=== PATIENT | male | born 1985 | race Hispanic/Latino ===

== ENCOUNTER 2020-10-09 02:29 | Emergency (ER) | payer SELFPAY ==
--- NOTE | ~2020-10-09 | XR_ITS ---
EXAMINATION: XR chest 2V DATE: 10/09/2020 02:55 INDICATION: Chest pain. Shortness of breath. TECHNIQUE: Frontal and lateral views of the chest were obtained. COMPARISON: Chest 2 views 02/25/2014 FINDINGS: The chest demonstrates clear lungs without pneumonia, pleural effusion, or pneumothorax. Th e heart size is normal. IMPRESSION: 1. No acute cardiopulmonary disease. Reviewed, dictated and finalized at location A.
[2020-10-09 02:33] VITALS: BP 146/94; PULSE 92; RESP 20; TEMP 36.5; O2SAT 100
--- NOTE | 2020-10-09 02:33 | ECG_ITS ---
Measurements Intervals [place] Rate: 90 P: 25 [place]: 131 QRS: 12 QRSD: 108 T: 8 QT: 332 QTc: 407 Interpretive Statements SINUS RHYTHM ST ELEVATION IN DIFFUSE LEADS- PROBABLY EARLY REPOLARIZATION ABNORMALTY BASELINE ARTIFACT- II, V3-V5 BORDERLINE ECG Electronically Signed On 10-09-2020 6:56:41 CDT by Wilder Mahan D.O.
[2020-10-09] MEDS: ASPIRIN 81 MG CHEWABLE TABLET 324 MG PO (02:41)
[2020-10-09 02:45] VITALS: BP 141/84; PULSE 90; RESP 16; O2SAT 96
[2020-10-09] MEDS: BELLADONNA ALK/PHENOB ELIX 10 ML, MAG HYDROX/ALUMINUM HYD/SIMETH 30 ML, LIDOCAINE HCL 2... PO (02:56)
[2020-10-09 03:19] LABS: Basophils Absolute Auto 0.1 K/mm3 (0.0-0.1); Basophils Percent Auto 0.4 % (0.2-1.2); Eosinophils Absolute Auto 0.1 K/mm3 (0-0.3); Eosinophils Percent Auto 0.7 % (0-4.4); Hematocrit 47.4 % (42.0-52.0); Hemoglobin 16.3 g/dL (14.0-18.0); Immature Granulocyte Absolute 0.04 K/mm3 (0.00-0.031); Immature Granulocyte Percent A 0.3 % (0-0.5); Lymphocytes Absolute Auto 4.14 K/mm3 (0.9-3.2); Mean Corpuscular HGB Conc 34.4 g/dl (32-36); Mean Corpuscular Hemoglobin 30.5 pg (26-34); Mean Corpuscular Volume 88.8 fl (80-100); Mean Platelet Volume 12.7 fl (7.4-10.4); Monocytes Absolute Auto 1.1 K/mm3 (0.1-0.6); Neutrophils Absolute Auto 6.5 K/mm3 (1.3-6.7); Neutrophils Percent Auto 54.6 % (45.5-73.1); Platelet Count Result 178 k/mm3 (150-375); Red Blood Count 5.34 M/mm3 (4.6-6.20); Red Cell Distribution Width 12.5 % (11.5-14.5); White Blood Count 11.8 K/mm3 (4.5-10.0)
[2020-10-09 03:35] LABS: INR 0.9; Prothrombin Time 12.8 Seconds (11.1-14.7)
[2020-10-09 03:37] LABS: Partial Thromboplastin Time 26.7 SECONDS (22.3-36.8)
[2020-10-09 03:39] LABS: Anion Gap 12 mmol/L (8-16); Blood Urea Nitrogen 21 mg/dL (9-20); Calcium 9.9 mg/dL (8.4-10.2); Carbon Dioxide 26 mmol/L (22-30); Chloride 101 mmol/L (98-107); Estimated CRCL calculation 125 ml/min; Estimated Glomerular Filt Rate > 60; Glucose 108 mg/dL (75-110); Potassium 3.8 mmol/L (3.4-5.0); Sodium 139 mmol/L (137-145)
[2020-10-09 03:51] LABS: Troponin I < 0.012 ng/mL (0.000-0.034)
[2020-10-09 03:59] VITALS: BP 135/81; PULSE 84; RESP 19; O2SAT 100
[2020-10-09 04:00] VITALS: BP 132/80; PULSE 93; RESP 15; O2SAT 97
--- NOTE | 2020-10-09 04:05 | ED.CHESTPAIN ---
HPI - Chest Pain General Chief Complaint: Chest Pain Stated Complaint: chest pain Time Seen by Provider: 10/09/20 02:34 History of Present Illness HPI narrative: Patient is a 35-year-old male who presents ER with chest pain. Begins in his epigastrium and goes up into the back of his throat. Burning in nature. No additional radiation. No exertional component. No shortness of breath. No previous history of coronary disease and no family history of coronary disease. Patient does have history of acid reflux and this feels similar. He also reports that he has been drinking some beers which may have worsened that. Pain ongoing for the last 24 hours. Has tried no medications to help with his discomfort. Related Data Allergies Allergy/AdvReac Type Severity Reaction Status Date / Time No Known Allergies Allergy Unverified 02/25/14 08:55 Review of Systems Review of Systems: All systems reviewed & are unremarkable except as noted in HPI and below Constitutional: Constitutional: Denies chills and Denies fever(s) Cardiovascular: Cardiovascular: Reports chest pain, Denies rapid heart rate and Denies radiating jaw, neck or arm pain Gastrointestinal: Gastrointestinal: Denies abdominal pain, Reports heartburn, Denies nausea and Denies vomiting PMFSH Past Medical History Medical History (Updated 10/09/20 @ 04:08 by Dirk Yun MD) GERD (gastroesophageal reflux disease) Surgical History Surgical History (Updated 10/09/20 @ 04:06 by Dirk Yun MD) No pertinent past surgical history Social History Social History (Updated 10/09/20 @ 04:06 by Dirk Yun MD) Smoking status: Current every day smoker Alcohol intake: current Exam Narrative: Exam Narrative: GENERAL: Well-appearing, well-nourished, and in no acute distress. HEAD: Normocephalic, atraumatic. EYES: PERRL and EOMI. CHEST: Clear to auscultation. No respiratory distress. HEART: Regular rate and rhythm. Normal peripheral pulses. ABDOMEN: Soft, nontender, nondistended. EXTREMITIES: Normal range of motion. No edema. SKIN: Warm, dry, no rash. NEURO: Alert and oriented x3. PSYCH: Normal mood and affect. Course Course Emergency Course: And improved with GI cocktail. Unremarkable lab work. Troponin negative. EKG with early repolarization abnormality. Discharge home with reflux medication. Vital Signs Vital signs: Vital Signs Temperature 97.7 F 10/09/20 02:33 Pulse Rate 92 10/09/20 02:33 Respiratory Rate 20 10/09/20 02:33 Blood Pressure 146/94 H 10/09/20 02:33 Pulse Oximetry 100 10/09/20 02:33 Temperature 97.7 F 10/09/20 02:33 Pulse Rate 92 10/09/20 02:33 Respiratory Rate 20 10/09/20 02:33 Blood Pressure 146/94 H 10/09/20 02:33 Pulse Oximetry 100 10/09/20 02:33 MDM - Chest Pain Lab Data Result diagrams: 10/09/20 02:43 10/09/20 02:43 Labs: Lab Results 10/09/20 10/09/20 10/09/20 Range/Units 02:43 02:43 02:43 WBC 11.8 H (4.5-10.0) K/mm3 RBC 5.34 (4.6-6.20) M/mm3 Hgb 16.3 (14.0-18.0) g/dL Hct 47.4 (42.0-52.0) % MCV 88.8 (80-100) fl MCH 30.5 (26-34) pg MCHC 34.4 (32-36) g/dl RDW 12.5 (11.5-14.5) % Plt Count 178 (150-375) k/mm3 MPV 12.7 H (7.4-10.4) fl Immature Gran % (Auto) 0.3 (0-0.5) % Neut % (Auto) 54.6 (45.5-73.1) % Lymph % (Auto) 35.0 (18.3-44.2) % [place] % (Auto) 9.0 H (2.6-8.5) % Eos % (Auto) 0.7 (0-4.4) % Baso % (Auto) 0.4 (0.2-1.2) % Lymph # (Auto) 4.14 H (0.9-3.2) K/mm3 [place] # (Auto) 1.1 H (0.1-0.6) K/mm3 Eos # (Auto) 0.1 (0-0.3) K/mm3 Baso # (Auto) 0.1 (0.0-0.1) K/mm3 Abs Immat Gran (auto) 0.04 H (0.00-0.031) K/mm3 Absolute Neuts (auto) 6.5 (1.3-6.7) K/mm3 Absolute Nucleated RBC 0.0 (0.0-0.012) K/mm3 Nucleated RBC % 0.0 (0.0-0.2) % PT 12.8 (11.1-14.7) Seconds INR 0.9 APTT 26.7 (22.3-36.8) SECONDS Sodium
== END 2020-10-09 04:28 | disposition home or self-care (01) ==
PROVIDERS: Emergency Provider Emergency Medicine
DX: K21.9 Gastro-esophageal reflux disease without esophagitis (principal); F17.200 Nicotine dependence, unspecified, uncomplicated; R94.31 Abnormal electrocardiogram [ECG] [EKG]
CPT/HCPCS: 36415; 71046; 80048; 84484; 85025; 85610; 85730; 93005; 99284; A9270

== ENCOUNTER 2020-10-28 19:11 | Emergency (ER) | payer SELFPAY ==
[2020-10-28 19:20] VITALS: BP 157/92; PULSE 76; RESP 22; TEMP 37; O2SAT 95
--- NOTE | 2020-10-28 19:21 | ECG_ITS ---
Measurements Intervals [place] Rate: 75 P: 24 TN: 152 QRS: 7 QRSD: 112 T: 8 QT: 355 QTc: 399 Interpretive Statements SINUS RHYTHM WITH SINUS ARRHYTHMIA INTRAVENTRICULAR CONDUCTION DELAY DELAYED PRECORDIAL R/S TRANSITION ST ELEVATION CONSISTENT WITH INJURY, PERICARDITIS, OR EARLY REPOLARIZATION ABNORMAL ECG Electronically Signed On 10-30-2020 11:44:36 CDT by Wilder Mahan D.O.
[2020-10-28 20:16] VITALS: BP 125/67; PULSE 71; RESP 18; O2SAT 100
[2020-10-28] MEDS: SODIUM CHLORIDE 0.9% IV 1,000 ML 999 ML IV CONT (20:16)
[2020-10-28 20:26] LABS: Basophils Percent Auto 0.3 % (0.2-1.2); Eosinophils Absolute Auto 0.1 K/mm3 (0-0.3); Eosinophils Percent Auto 0.8 % (0-4.4); Hematocrit 44.5 % (42.0-52.0); Hemoglobin 15.2 g/dL (14.0-18.0); Immature Granulocyte Absolute 0.03 K/mm3 (0.00-0.031); Immature Granulocyte Percent A 0.3 % (0-0.5); Lymphocytes Absolute Auto 2.81 K/mm3 (0.9-3.2); Lymphocytes Percent Auto 30.9 % (18.3-44.2); Mean Corpuscular HGB Conc 34.2 g/dl (32-36); Mean Corpuscular Hemoglobin 30.3 pg (26-34); Mean Corpuscular Volume 88.6 fl (80-100); Monocytes Absolute Auto 0.7 K/mm3 (0.1-0.6); Monocytes Percent Auto 7.9 % (2.6-8.5); Neutrophils Absolute Auto 5.4 K/mm3 (1.3-6.7); Neutrophils Percent Auto 59.8 % (45.5-73.1); Platelet Count Result 167 k/mm3 (150-375); Red Blood Count 5.02 M/mm3 (4.6-6.20); Red Cell Distribution Width 12.6 % (11.5-14.5); White Blood Count 9.1 K/mm3 (4.5-10.0)
[2020-10-28 20:40] LABS: Alanine Aminotransferase 26 U/L (4-50); Albumin Level 4.8 g/dL (3.5-5.1); Alkaline Phosphatase 86 U/L (38-126); Anion Gap 11 mmol/L (8-16); Aspartate Amino Transferase 31 U/L (17-59); Bilirubin,Total 0.3 mg/dL (0.2-1.3); Blood Urea Nitrogen 16 mg/dL (9-20); Calcium 9.7 mg/dL (8.4-10.2); Carbon Dioxide 27 mmol/L (22-30); Chloride 101 mmol/L (98-107); Creatine Kinase 71 U/L (55-170); Estimated CRCL calculation 126 ml/min; Estimated Glomerular Filt Rate > 60; Glucose 100 mg/dL (75-110); Lipase 89 U/L (23-300); Potassium 3.6 mmol/L (3.4-5.0); Sodium 139 mmol/L (137-145)
[2020-10-28 20:49] LABS: Troponin I < 0.012 ng/mL (0.000-0.034)
[2020-10-28 21:38] VITALS: BP 127/64; PULSE 57; RESP 18; O2SAT 95
--- NOTE | 2020-10-28 21:38 | ED.GENADULT ---
HPI - General Adult General Chief complaint: Chest Pain Stated complaint: cp, fatigue Time Seen by Provider: 10/28/20 19:27 History of Present Illness HPI narrative: Patient is a 35-year-old male who presents ER with 2 different complaints. Main complaint is fatigue with muscle cramping. Ongoing over the last week. Will get cramps in his right shoulder and also on his thighs. 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 With the cramping today he felt extremely tired and sweaty and also developed some nausea. Denies alleviating factors. Patient also reports some persistent epigastric discomfort going up into his chest. Previously this improved with GI cocktail. He had been on famotidine without much relief. No exertional component. Denies family history of heart disease. Related Data Allergies Allergy/AdvReac Type Severity Reaction Status Date / Time No Known Allergies Allergy Unverified 02/25/14 08:55 Review of Systems Review of Systems: All systems reviewed & are unremarkable except as noted in HPI and below Constitutional: Constitutional: Denies chills, Reports fatigue and Denies fever(s) Comments: Sweats ENT: Denies nasal congestion and Denies sore throat Gastrointestinal: Gastrointestinal: Reports abdominal pain, Reports heartburn, Reports nausea and Denies vomiting Musculoskeletal: Musculoskeletal: Denies back pain, Denies arthralgias, Denies joint swelling and Reports muscle cramps Neurologic: Denies dizziness, Denies headache(s) and Denies weakness PMFSH Past Medical History Medical History (Updated 10/28/20 @ 21:44 by Dirk Yun MD) GERD (gastroesophageal reflux disease) Surgical History Surgical History (Updated 10/09/20 @ 04:06 by Dirk Yun MD) No pertinent past surgical history Social History Social History (Updated 10/09/20 @ 04:06 by Dirk Yun MD) Smoking status: Current every day smoker Alcohol intake: current Exam Narrative: Exam Narrative: GENERAL: Well-appearing, well-nourished, and in no acute distress. HEAD: Normocephalic, atraumatic. ENT: Mucous membranes moist. CHEST: Clear to auscultation. No respiratory distress. HEART: Regular rate and rhythm. Normal peripheral pulses. ABDOMEN: Soft, nontender, nondistended. EXTREMITIES: Normal range of motion. No edema. No tenderness of the extremities or palpable spasm. SKIN: Warm, dry, no rash. NEURO: Alert and oriented x3. Course Course Emergency Course: Unremarkable evaluation. Patient hydrated. Patient seems to have heat related illness and may also have persistent acid reflux. He reports he has not establish care with PCP and have encouraged him to do so. Vital Signs Vital signs: Vital Signs Temperature 98.6 F 10/28/20 19:20 Pulse Rate 76 10/28/20 19:20 Respiratory Rate 22 H 10/28/20 19:20 Blood Pressure 157/92 H 10/28/20 19:20 Pulse Oximetry 95 10/28/20 19:20 Temperature 98.6 F 10/28/20 19:20 Pulse Rate 71 10/28/20 20:16 Respiratory Rate 18 10/28/20 20:16 Blood Pressure 125/67 10/28/20 20:16 Pulse Oximetry 100 10/28/20 20:16 Medical Decision Making Vital Signs Vital Signs: Vital Signs Temperature 98.6 F 10/28/20 19:20 Pulse Rate 76 10/28/20 19:20 Respiratory Rate 22 H 10/28/20 19:20 Blood Pressure 157/92 H 10/28/20 19:20 Pulse Oximetry 95 10/28/20 19:20 Temperature 98.6 F 10/28/20 19:20 Pulse Rate 71 10/28/20 20:16 Respiratory Rate 18 10/28/20 20:16 Blood Pressure 125/67 10/28/20 20:16 Pulse Oximetry 100 10/28/20 20:16 Lab Data Result diagrams: 10/28/20 20:19 10/28/20 20:19 Labs: Lab Results 10/28/20 10/28/20 Range/Units 20:19 20:19 WBC 9.1 (4.5-10.0) K/mm3 RBC 5.02 (4.6-6.20) M/mm3 Hgb 15.2 (14.0-18.0) g/dL Hct 44.5 (42.0-52.0) % MCV 88.6 (80-100) fl MCH 30.3 (26-34) pg MCHC 34.2 (32-36) g/dl RDW 12.6 (11.5-14.5) % Plt Coun
[2020-10-28 22:36] VITALS: BP 122/66; PULSE 61; RESP 18; O2SAT 99
== END 2020-10-28 22:39 | disposition home or self-care (01) ==
PROVIDERS: Emergency Provider Emergency Medicine; PCP Registered Nurse
DX: T67.5XXA Heat exhaustion, unspecified, initial encounter (principal); K21.9 Gastro-esophageal reflux disease without esophagitis; F17.200 Nicotine dependence, unspecified, uncomplicated; R07.89 Other chest pain; X30.XXXA Exposure to excessive natural heat, initial encounter
CPT/HCPCS: 36415; 80053; 82550; 83690; 84484; 85025; 93005; 96360; 99284; J7030

== ENCOUNTER 2020-10-30 15:15 | Emergency (ER) | payer SELFPAY ==
--- NOTE | ~2020-10-30 | XR_ITS ---
EXAMINATION: XR chest 2V DATE: 10/30/2020 15:50 INDICATION: Midsternal chest pain TECHNIQUE: PA and lateral views of the chest are obtained. COMPARISON: 10/09/2020 FINDINGS: The lungs are free of acute opacities. There is no pleural effusion or pneumothorax. The ca rdiomediastinal silhouette is normal. The visualized bones and soft tissues are unremarkable. IMPRESSION: 1. No acute cardiopulmonary abnormality. Reviewed, dictated and finalized at location A.
[2020-10-30 15:16] VITALS: BP 129/81; PULSE 80; RESP 20; TEMP 36.6; O2SAT 96
--- NOTE | 2020-10-30 15:17 | ECG_ITS ---
Measurements Intervals [place] Rate: 67 P: 51 [place]: 166 QRS: 28 QRSD: 109 T: 18 QT: 366 QTc: 387 Interpretive Statements SINUS RHYTHM INCOMPLETE RIGHT BUNDLE BRANCH BLOCK DELAYED PRECORDIAL R/S TRANSITION ST ELEVATION IN DIFFUSE LEADS- PROBABLY EARLY REPOLARIZATION ABNORMALITY BORDERLINE ECG Electronically Signed On 10-30-2020 15:30:59 CDT by Wilder Mahan D.O.
[2020-10-30 16:00] LABS: Basophils Percent Auto 0.3 % (0.2-1.2); Eosinophils Absolute Auto 0.1 K/mm3 (0-0.3); Eosinophils Percent Auto 0.6 % (0-4.4); Hemoglobin 16.3 g/dL (14.0-18.0); Immature Granulocyte Absolute 0.04 K/mm3 (0.00-0.031); Immature Granulocyte Percent A 0.4 % (0-0.5); Lymphocytes Absolute Auto 2.62 K/mm3 (0.9-3.2); Lymphocytes Percent Auto 27.5 % (18.3-44.2); Mean Corpuscular Volume 88.4 fl (80-100); Mean Platelet Volume 12.3 fl (7.4-10.4); Monocytes Percent Auto 10.1 % (2.6-8.5); Neutrophils Absolute Auto 5.8 K/mm3 (1.3-6.7); Neutrophils Percent Auto 61.1 % (45.5-73.1); Platelet Count Result 200 k/mm3 (150-375); Red Blood Count 5.43 M/mm3 (4.6-6.20); Red Cell Distribution Width 12.5 % (11.5-14.5); White Blood Count 9.5 K/mm3 (4.5-10.0)
[2020-10-30 16:11] LABS: Anion Gap 11 mmol/L (8-16); Blood Urea Nitrogen 18 mg/dL (9-20); Calcium 9.7 mg/dL (8.4-10.2); Carbon Dioxide 25 mmol/L (22-30); Chloride 103 mmol/L (98-107); Estimated CRCL calculation 124 ml/min; Estimated Glomerular Filt Rate > 60; Glucose 113 mg/dL (75-110); Potassium 3.8 mmol/L (3.4-5.0); Sodium 139 mmol/L (137-145)
[2020-10-30 16:22] LABS: Troponin I < 0.012 ng/mL (0.000-0.034)
[2020-10-30 16:42] VITALS: BP 145/76; PULSE 75; RESP 14; O2SAT 99
--- NOTE | 2020-10-30 17:40 | ED.CHESTPAIN ---
HPI - Chest Pain General Chief Complaint: Chest Pain Stated Complaint: chest pain Time Seen by Provider: 10/30/20 17:00 Source: patient and family Mode of arrival: ambulatory Limitations: no limitations History of Present Illness HPI narrative: Patient is a 35-year-old male who presents complaining of epigastric pain x3 weeks. Patient was seen 10/09 and 10/28 with complaints that included chest/epigastric pain. He reports taking Protonix over the past 2 days without relief. He reports increasing pain this afternoon. He denies shortness of breath. Denies all other complaints at this time. Patient has not scheduled follow-up with PCP as of this time. MD complaint: other (Epigastric pain) Related Data Allergies Allergy/AdvReac Type Severity Reaction Status Date / Time No Known Allergies Allergy Verified 10/30/20 16:43 Review of Systems Review of Systems: Narrative: CONSTITUTIONAL: Denies fever, chills, or sweats. EYES: Denies visual changes, redness, or discharge. ENT: Denies rhinorrhea, congestion, sore throat, or otalgia. CARDIOVASCULAR: Reports epigastric pain, denies palpitations, or edema. RESPIRATORY: Denies cough or dyspnea. GASTROINTESTINAL: Denies abdominal pain, nausea, vomiting, or diarrhea. GENITOURINARY: Denies dysuria or hematuria. SKIN: Denies rash or itching. MUSCULOSKELETAL: Denies back pain, joint pain, or myalgia. NEUROLOGIC: Denies headache, numbness, dizziness, or weakness. PSYCHIATRIC: Denies anxiety or depression. PMFSH Past Medical History Medical History GERD (gastroesophageal reflux disease) Surgical History Surgical History No pertinent past surgical history Social History Social History Smoking status: Current every day smoker Alcohol intake: current Gender identity (if verbalized by the patient): Male Comments At the time of signature, I have reviewed and agree with nursing past medical, surgical, social, and family history unless otherwise noted. Please see nursing chart for further information. There is no relevant family history pertinent to the presenting complaint. Exam Narrative: Exam Narrative: GENERAL: Well-appearing, well-nourished, and in no acute distress. HEAD: Normocephalic, atraumatic. EYES: EOMI. No redness or drainage. Conjunctiva are normal. ENT: Mucous membranes pink and moist. Throat normal. Uvula midline. NECK: AROM. Supple. No lymphadenopathy. CHEST: No respiratory distress. Clear to auscultation. HEART: Regular rate and rhythm. No murmur appreciated. Normal peripheral pulses. GI: Soft, nontender without rebound, or guarding. No distention. Bowel sounds normal in all quadrants. MUSCULOSKELETAL: No bony tenderness. EXTREMITIES: Normal range of motion. No edema. SKIN: Warm, dry, no rash. NEURO: No focal deficits. Alert and oriented x3. Gait steady. PSYCH: Normal affect. No signs of depression or anxiety. Course Course Emergency Course: Patient reports to RN that he is feeling better after GI cocktail and is ready to eat and go home at this time. Vital Signs Vital signs: Vital Signs Temperature 36.6 C 10/30/20 15:16 Pulse Rate 80 10/30/20 15:16 Respiratory Rate 20 10/30/20 15:16 Blood Pressure 129/81 10/30/20 15:16 Pulse Oximetry 96 10/30/20 15:16 Temperature 36.6 C 10/30/20 15:16 Pulse Rate 69 10/30/20 18:50 Respiratory Rate 16 10/30/20 18:49 Blood Pressure 144/97 H 10/30/20 18:49 Pulse Oximetry 97 10/30/20 18:49 Reviewed. Patient has been instructed to follow-up with his PCP regarding his blood pressure. MDM - Chest Pain MDM Narrative Medical decision making narrative: Patient's labs are unremarkable. EKG shows no changes from 10/28. Patient reports he is feeling much better after GI cocktail. Discussed with patient the need to follow-up wi
[2020-10-30 18:49] VITALS: BP 144/97; PULSE 68; RESP 16; O2SAT 97
[2020-10-30] MEDS: BELLADONNA ALK/PHENOB ELIX 10 ML, MAG HYDROX/ALUMINUM HYD/SIMETH 30 ML, LIDOCAINE HCL 2... PO (18:49)
[2020-10-30 18:50] VITALS: PULSE 69
[2020-10-30 18:53] LABS: Alanine Aminotransferase 27 U/L (4-50); Albumin Level 4.8 g/dL (3.5-5.1); Alkaline Phosphatase 75 U/L (38-126); Aspartate Amino Transferase 28 U/L (17-59); Bilirubin,Total 0.3 mg/dL (0.2-1.3); Lipase 68 U/L (23-300)
[2020-10-30 19:05] LABS: Troponin I < 0.012 ng/mL (0.000-0.034)
[2020-10-30 20:17] VITALS: BP 128/84; PULSE 76; RESP 16; TEMP 36.3; O2SAT 98
== END 2020-10-30 20:17 | disposition home or self-care (01) ==
PROVIDERS: Emergency Medicine; Emergency Provider Nurse Practitioner; PCP Registered Nurse
DX: K21.9 Gastro-esophageal reflux disease without esophagitis (principal); R07.89 Other chest pain; F17.200 Nicotine dependence, unspecified, uncomplicated; I45.10 Unspecified right bundle-branch block; R94.31 Abnormal electrocardiogram [ECG] [EKG]
CPT/HCPCS: 36415; 71046; 80048; 80076; 83690; 84484; 85025; 85610; 85730; 93005; 99284; A9270

== ENCOUNTER 2023-09-14 20:13 | Observation (INO) | payer MEDICAID, SELFPAY ==
--- NOTE | ~2023-09-14 | MR_ITS ---
EXAMINATION: MR brain/brain stem wo/w con DATE: 09/15/2023 11:31 INDICATION: Left hemiparesis. TECHNIQUE: Magnetic resonance imaging (MRI) of the brain and brainstem was performed without and with 20 mL MultiHance intravenous contrast. COMPARISON: Head CT 09/14/2023 FINDINGS: There is no intracranial hemorrhage, acute infarction, or abnormal intracranial mass lesion . The ventricles are normal in size. The mastoid air cells are normal. There are mucous retention cys ts in the maxillary sinuses. The orbits are normal. IMPRESSION: 1. Normal brain. Reviewed, dictated and finalized at location A. IMPRESSION: 1. Normal brain.
--- NOTE | ~2023-09-14 | CT_ITS ---
EXAMINATION: CT brain wo con DATE: 09/14/2023 21:47 INDICATION: Left-sided facial droop and numbness TECHNIQUE: Computed tomography (CT) of the head was performed without intravenous contrast. Sagittal and coronal reconstructions were performed. The mA was adjusted according to patient size. Iterative reconstruction technique was employed. The dose-length product was 681.00 mGy-cm. COMPARISON: head CT dated 02/25/14 FINDINGS: No acute intracranial hemorrhage, acute infarction or abnormal extra axial fluid collection. Ventricl es are normal and symmetric. No mass/mass effect. The orbits, paranasal sinuses and mastoid air cells are normal. IMPRESSION: 1. Normal head CT. Reviewed, dictated and finalized at location A. IMPRESSION: 1. Normal head CT.
--- NOTE | ~2023-09-14 | XR_ITS ---
EXAMINATION: XR chest 1V portable DATE: 09/14/2023 21:00 INDICATION: Left-sided numbness TECHNIQUE: frontal view of the chest was obtained. COMPARISON: Chest radiograph dated 10/30/2020 FINDINGS: The lungs remain clear with no focal airspace opacities, pulmonary edema, pleural effusion or pneumot horax. The cardiomediastinal silhouette is normal. Irregular cortical contour consistent with either a partially visualized old healed fracture deformity or sessile osteochondroma along the medial aspec t of the proximal right humerus. IMPRESSION: 1. No acute cardiopulmonary disease. Reviewed, dictated and finalized at location A.
--- NOTE | ~2023-09-14 | MR_ITS ---
EXAMINATION: MR cervical spine wo con DATE: 09/15/2023 16:16 INDICATION: Left-sided paresthesias. Neck pain. TECHNIQUE: Magnetic resonance imaging (MRI) of the cervical spine was performed without intravenous c ontrast. COMPARISON: None FINDINGS: Bone alignment is normal. Vertebral body heights are normal. Intervertebral disc heights ar e normal. The spinal cord signal intensity is normal. The following disc levels are specifically disc ussed: C2-C3: The disc does not extend beyond the endplate margin. There is no uncovertebral joint osteoarth ritis. There is moderate left facet joint osteoarthritis. There is mild left neural foraminal stenosi s. There is no central canal stenosis. C3-C4: The disc does not extend beyond the endplate margin. There is no uncovertebral joint osteoarth ritis. There is no facet joint osteoarthritis. There is no neural foraminal stenosis. There is no rachel tral canal stenosis. C4-C5: The disc does not extend beyond the endplate margin. There is no uncovertebral joint osteoarth ritis. There is no facet joint osteoarthritis. There is no neural foraminal stenosis. There is no rachel tral canal stenosis. C5-C6: The disc does not extend beyond the endplate margin. There is mild right uncovertebral joint o steoarthritis. There is no facet joint osteoarthritis. There is mild right neural foraminal stenosis. There is no central canal stenosis. C6-C7: The disc does not extend beyond the endplate margin. There is no uncovertebral joint osteoarth ritis. There is mild bilateral facet joint osteoarthritis. There is no neural foraminal stenosis. The re is no central canal stenosis. C7-T1: The disc does not extend beyond the endplate margin. There is no uncovertebral joint osteoarth ritis. There is mild left facet joint osteoarthritis. There is no neural foraminal stenosis. There is no central canal stenosis. IMPRESSION: 1. Mild cervical spondylosis. Reviewed, dictated and finalized at location A.
--- NOTE | ~2023-09-14 | CT_ITS ---
EXAMINATION: CTA BRAIN/CAROTID DATE: 09/14/2023 21:51 INDICATION: Left-sided hemiparesis, numbness and tingling along with left-sided facial paralysis TECHNIQUE: Computed tomographic angiography (CTA) of the head and neck was performed with 100 mL Omni paque-350 intravenous contrast. Multiplanar reconstructions and maximum intensity projection 3D-recon structions of the carotid arteries and of the intracranial arteries were created by the technologist on a separate workstation. Automated exposure control and iterative reconstruction technique were em ployed.The dose-length product was 1139.27 mGy-cm. COMPARISON: None. FINDINGS: Carotid arteries: Visualized portion of the thoracic aorta and great vessels arising from the arch are normal in calibe r with no dissection or evident atherosclerotic plaque. There is no evident atherosclerotic plaque wi th 0% stenosis of the right and left carotid bulbs relative to normal distal artery lumen diameter (N ASCET criteria). The bilateral cervical portions of the vertebral arteries demonstrate no evident ath erosclerotic plaque or stenosis. Respiratory motion and dependent atelectasis in the visualized lungs . Cervical soft tissues are unremarkable. Mild cervical spondylosis. Intracranial arteries There is no hemodynamically significant stenosis in the vertebral, basilar and internal carotid arter ies. Left vertebral artery is dominant. There are no aneurysms identified. Both A1 and P1 segments a re patent. The left P1 segment is diminutive with collateral flow supplied via a patent left posterio r communicating artery. Cerebral arterial arborization appears symmetric. No abnormally enhancing bra in lesions identified. IMPRESSION: 1. No evident atherosclerotic plaque with 0% stenosis of the right and left carotid bulbs relative to normal distal artery lumen diameter (NASCET criteria). 2. Unremarkable cerebral CT angiogram with no aneurysm or hemodynamically significant stenosis. Reviewed, dictated and finalized at location A. IMPRESSION: 1. No evident atherosclerotic plaque with 0% stenosis of the right and left car otid bulbs relative to normal distal artery lumen diameter (NASCET criteria). 2. Unremarkable cerebral CT angiogram with no aneurysm or hemodynamically signi ficant stenosis.
[2023-09-14 20:18] VITALS: BP 177/96; PULSE 76; RESP 15; TEMP 36.5; O2SAT 97
--- NOTE | 2023-09-14 20:44 | ECG_ITS ---
SEE SCANNED COPY FOR CONFIRMED REPORT MTDD
[2023-09-14 21:03] LABS: Basophils Percent Auto 0.2 % (0.2-1.2); Hematocrit 45.6 % (42.0-52.0); Hemoglobin 16.2 g/dL (14.0-18.0); Immature Granulocyte Absolute 0.08 K/mm3 (0.00-0.031); Immature Granulocyte Percent A 0.8 % (0-0.5); Lymphocytes Absolute Auto 1.91 K/mm3 (0.9-3.2); Lymphocytes Percent Auto 18.7 % (18.3-44.2); Mean Corpuscular HGB Conc 35.5 g/dl (32-36); Mean Corpuscular Hemoglobin 30.9 pg (26-34); Mean Platelet Volume 11.9 fl (7.4-10.4); Monocytes Absolute Auto 0.9 K/mm3 (0.1-0.6); Monocytes Percent Auto 8.4 % (2.6-8.5); Neutrophils Absolute Auto 7.4 K/mm3 (1.3-6.7); Neutrophils Percent Auto 71.9 % (45.5-73.1); Platelet Count Result 240 k/mm3 (150-375); Red Blood Count 5.24 M/mm3 (4.6-6.20); Red Cell Distribution Width 12.8 % (11.5-14.5); White Blood Count 10.2 K/mm3 (4.5-10.0)
[2023-09-14 21:04] LABS: Appearance Urine Clear (Clear); Bilirubin Urine Negative (Negative); Blood Urine Negative (Negative); Color Urine Yellow (Yellow); Glucose Urine UA Negative (Negative); Ketones Urine Negative (Negative); Leukocyte Esterase Ur Negative LEU/UL (Negative); Nitrate Urine Negative (Negative); Protein Urine Negative (Negative); Urobilinogen Urine 0.2 mg/dL (<2.0)
[2023-09-14 21:14] LABS: Partial Thromboplastin Time 26.4 Seconds (22.3-36.8); Prothrombin Time 14.1 Seconds (11.1-14.7)
[2023-09-14 21:19] LABS: Lactic Acid Reflex 1.8 mmol/L (0.7-2.0)
[2023-09-14 21:20] LABS: Alanine Aminotransferase 52 U/L (6-50); Albumin Level 4.7 g/dL (3.5-5.1); Alkaline Phosphatase 78 U/L (38-126); Anion Gap 7 mmol/L (4-12); Aspartate Amino Transferase 32 U/L (17-59); Bilirubin,Total 0.4 mg/dL (0.2-1.3); Blood Urea Nitrogen 25 mg/dL (9-20); Calcium 9.5 mg/dL (8.4-10.2); Carbon Dioxide 26 mmol/L (22-30); Chloride 103 mmol/L (98-107); Estimated CRCL calculation 109 ml/min; Estimated Glomerular Filt Rate > 60; Glucose 121 mg/dL (65-110); Sodium 136 mmol/L (137-145)
[2023-09-14 21:32] LABS: Troponin I < 0.012 ng/mL (0.000-0.034)
[2023-09-14 21:47] LABS: Add Urine Microscopic? NO
--- NOTE | 2023-09-14 22:34 | ED.GENADULT ---
HPI - General Adult General Chief complaint: Neuro Symptoms/Deficit Stated complaint: L sided numbness for 1 week Time Seen by Provider: 09/14/23 20:31 History of Present Illness HPI narrative: Patient is a 38-year-old gentleman presents emergency department chief complaint of left-sided facial droop and numbness on the left side of his body the patient states about a week ago he developed a facial droop time was seen at [facility]. 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 and reports that since then but 2 days ago and developed numbness in his left arm and left leg patient cited today to come into the emergency department to be re-evaluated as he is not getting better on the medications Related Data Home Medications Medication Instructions Recorded Confirmed hydrochlorothiazide 25 mg tablet 25 mg PO DAILY 09/15/23 09/15/23 lisinopril 2.5 mg tablet 2.5 mg PO DAILY 09/15/23 09/15/23 omeprazole 20 mg capsule,delayed 20 mg PO DAILY 09/15/23 09/15/23 release Allergies Allergy/AdvReac Type Severity Reaction Status Date / Time No Known Allergies Allergy Verified 10/30/20 16:43 Review of Systems Review of Systems: A 10 system review of systems was completed on the patient and is negative except for what is stated in the HPI. Nursing and ancillary documentation was reviewed. [facility] Past Medical History Medical History GERD (gastroesophageal reflux disease) Surgical History Surgical History No pertinent past surgical history Social History Social History Smoking status: Former smoker Alcohol intake: current Drinks per week: 3 Substance use type: does not use Do You Feel Safe in your Home?: Yes Lack of Transportation: No Lack of Food: Never True Current Housing: I Have Housing Concerned About Future Housing: No Difficulty Paying Gas/Electric Bills: No Difficulty Paying for Meds: No Currently Unemployed: No Education: High School Diploma/GED Difficulty w/ Childcare or Family Care: No Gender identity (if verbalized by the patient): Male Spiritual care concerns: No Exam Narrative: GENERAL: Well-appearing, well-nourished, and in no acute distress. HEAD: Normocephalic, atraumatic. EYES: PERRLA and EOMI. ENT: Nares clear, no rhinorrhea or epistaxis. Mucous membranes moist. NECK: Supple. CHEST: Clear to auscultation. No respiratory distress. HEART: Regular rate and rhythm. No murmur heard. Normal peripheral pulses. ABDOMEN: Soft, nontender, nondistended, normal active bowel sounds. EXTREMITIES: Normal range of motion. No edema. SKIN: Warm, dry, no rash. NEURO: Left-sided facial palsy decreased sensation left arm left leg. Alert and oriented x3. PSYCH: Normal mood and affect. Course Vital Signs Vital signs: Vital Signs Temperature 36.5 C 09/14/23 20:18 Pulse Rate 76 09/14/23 20:18 Respiratory Rate 15 09/14/23 20:18 Blood Pressure 177/96 H 09/14/23 20:18 Pulse Oximetry 97 09/14/23 20:18 Oxygen Delivery Room Air 09/14/23 20:18 Temperature 36.2 C L 09/15/23 00:48 Pulse Rate 65 09/15/23 00:48 Respiratory Rate 16 09/15/23 00:48 Blood Pressure 138/92 H 09/15/23 00:48 Pulse Oximetry 98 09/15/23 00:48 Oxygen Delivery Room Air 09/14/23 20:18 Medical Decision Making [facility] Narrative Medical decision making narrative: Differential diagnosis includes CVA, Appiah's palsy electrolyte abnormality, infection Laboratory studies showed a white count of 10.2 electrolytes with a limp urinalysis was within normal limits. EKG showed normal sinus rhythm no ST elevation or ST depression no dysrhythmia CT head showed no acute abnormality CTA head and neck showed no acute abnormalities no blockage Vital Signs Vital Sig
[2023-09-14] MEDS: ASPIRIN 81 MG CHEWABLE TABLET 324 MG PO (23:21)
[2023-09-14 23:23] VITALS: BP 158/92; PULSE 76; RESP 15; O2SAT 100
--- NOTE | 2023-09-14 23:28 | PM.IMHP ---
H&P: HPI History of Present Illness Date/Time: 09/14/23 23:28 Chief Complaint: left-sided weakness Narrative: 38-year-old [place]-speaking male with a past medical history of essential hypertension, high cholesterol and GERD who presented to the ER with left-sided numbness and tingling and left facial palsy. Patient was evaluated at [facility] 09/04/22 and was diagnosed with Appiah's palsy. Patient reports that his symptoms started the night before with drooping of his mouth and difficulty closing his left eye. He reports decreased sensation to the entire left side of the face. He was discharged on acyclovir and prednisone. He reports that his vision was getting blurry in his left eye but was intermittent in nature and would clear at times. He reports that the eye feels dry and burning at times. His symptoms did not improve despite treatment and taking the medications as directed. He then noticed on the had a had some paresthesias down the back of his left arm and in the palm. Bed paresthesias in his left arm more intermittent. He also was having some intermittent paresthesias down the back of his left leg. He denied any weakness of the arm but was having some tightness in the scapular area. He reported that the back of his shoulder felt heavy year tight. He denied any difficulty with ambulation. He reports that occasionally was having some slurred speech due to his facial droop. He denies any recent viral symptoms or ill contacts. He did have some episodes of vertigo a couple of months ago that were isolated for a couple of days but have not recurred. He denies any difficulty with his hearing. He is right handed and has been able to write without difficulty. He denies difficulty with reading are visual perception besides the intermittent blurry vision of the eye. In the ER CT of the brain without contrast and CT of the head and neck were negative for acute process. The patient's BUN was slightly elevated as was his ALT and glucose. He was drinking a regular showed at the time of my evaluation in this was not a fasting glucose. His EKG was personally reviewed and demonstrated normal sinus rhythm with normal intervals. His initial blood pressure in the ER was 177/96 but improved down to the 130s/90 by the time he arrived to the medical floor without intervention. The patient was felt to have likely Appiah's palsy but given his left upper and lower extremity paresthesias in elevated blood he was admitted as observation to telemetry to rule out evolving stroke. He denies any recent injury, headaches, nausea vomiting, chest pain, palpitations, or lower extremity swelling. He does report that he snores. His has told him in the past that she has to wake him up because he stops breathing. He has never been tested for sleep apnea. History was obtained through the use of bilingual interpreter service with the 1st bilingual interpreter number being [id number] have unfortunately we were disconnected during the 1st conversation and a 2nd bilingual interpreter was utilized with the reference [id number]. Review of Systems Review of Systems: 12 systems were reviewed with pertinent positives and negatives per HPI. Except as documented in the HPI, all other systems were reviewed and are negative. [facility] Past Medical History Medical History (Updated 09/15/23 @ 02:29 by Rhea Awad DO) Essential hypertension GERD (gastroesophageal reflux disease) Surgical History Surgical History No pertinent past surgical history Family History Family History (Updated 09/15/23 @ 02:30 by Rhea Awad DO) Mother Healthy adult Father Healthy adult Social History Social History (Updated 09/15/23 @ 02:31 by Rhea Awad DO) Social History: The patient lives at home with his and 4 children. 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 He is [place]-speaking only. He drinks alcohol 1-2 beers once a week. He denies illicit substa
[2023-09-15] VITALS (7 sets, daily range): BP systolic 117–138; BP diastolic 66–92; PULSE 64–82; RESP 16–20; TEMP 36.2–36.9; O2SAT 97–100; BMI 30.6
--- NOTE | 2023-09-15 01:48 | ADMGEN ---
This patient, Rickey Shane, was admitted to 3 Med Surg Room 313-01. Patient/family oriented to hospital policies and general routines including ID bracelet, bed and alarms, visiting hours, pain management, procedures, bathroom and other care routines, personal items, smoking policy, room service/diet, and visiting hours. Information on how to activate the Rapid Response Team has been discussed. Patient/Family are encouraged to report perceived risks to care and to ask questions if they do not understand what they are told or what they should do.
[2023-09-15] MEDS: SODIUM CHLORIDE 0.9% IV 1,000 ML 999 ML IV CONT (02:58)
[2023-09-15 06:25] LABS: Anion Gap 8 mmol/L (4-12); Blood Urea Nitrogen 20 mg/dL (9-20); Carbon Dioxide 26 mmol/L (22-30); Chloride 103 mmol/L (98-107); Cholesterol 157 mg/dL (0-200); Estimated CRCL calculation 122 ml/min; Estimated Glomerular Filt Rate > 60; Glucose 87 mg/dL (65-110); HDL Direct 37 mg/dL; Potassium 3.5 mmol/L (3.4-5.0); Sodium 137 mmol/L (137-145); Triglycerides 227 mg/dL (<150)
[2023-09-15 06:35] LABS: LDL Cholesterol Direct 95 mg/dL
[2023-09-15] MEDS: ASPIRIN 81 MG CHEWABLE TABLET PO (08:38)
[2023-09-15] MEDS: hydroCHLOROthiazide 25 MG TABLET PO (08:38)
[2023-09-15] MEDS: PANTOPRAZOLE 40 MG TABLET PO (08:38)
[2023-09-15] MEDS: ENOXAPARIN 40 MG/0.4 ML SYRINGE SUB-Q (08:39)
--- NOTE | 2023-09-15 15:30 | PM.IMPN ---
Progress Note: A&P Assessment and Plan (1) Facial droop: Code(s): R29.810 - Facial weakness Status: Acute (2) Left sided numbness: Code(s): R20.0 - Anesthesia of skin Status: Acute (3) Essential hypertension: Code(s): I10 - Essential (primary) hypertension Status: Acute Plan Patient has facial droop and presentation consistent with Appiah's palsy. Patient had received antiviral and prednisone therapy at outside ER without improvement in symptoms. This will likely improve over the next couple of months with supportive care. However the patient has now developed more acute symptoms of paresthesias down the posterior left arm, paresthesias of the palmar surfaces of the left hand and paresthesias of the posterior thigh stopping just above the calf with no associated weakness or significant change in coordination on exam. Differential does include CVA although seems less likely given distribution and intermittent nature of the symptoms, TIA and MS among other neurologic etiologies. Patient will be admitted as observation status and monitored on telemetry. EKG with normal sinus rhythm. A CT head normal. CTA head and neck with no evidence of atherosclerotic plaque with 0% stenosis of the right and left carotid bulbs related to normal distal artery lumen diameter unremarkable cerebral CT angiogram with no aneurysm or hemodynamically significant stenosis. Brain MRI performed which was negative. On aspirin 81 mg daily Does report some neck pain. Will perform cervical MRI. Neurology will be consulted in a.m as no neurology coverage today. Elevated blood pressure improved Hyperlipidemia not on statin therapy lipid with triglyceride elevated 27 LDL 95 DVT prophylaxis Lovenox Subjective Date/time seen: 09/15/23 15:30 Interval history: Left-sided paresthesia reported. Left facial weakness since a week Review of Systems Review of Systems: All systems reviewed & are unremarkable except as noted in HPI and below Exam Narrative: GENERAL: Well-appearing, well-nourished, and in no acute distress. HEAD: Normocephalic, atraumatic. EYES: PERRLA and EOMI. ENT: Nares clear, no rhinorrhea or epistaxis.? Mucous membranes moist. NECK: Supple. CHEST: Clear to auscultation.? No respiratory distress. HEART: Regular rate and rhythm.? No murmur heard.? Normal peripheral pulses. ABDOMEN: Soft, nontender, nondistended, normal active bowel sounds. EXTREMITIES: Normal range of motion.? No edema. SKIN: Warm, dry, no rash. NEURO:? Left-sided facial palsy decreased sensation left arm left leg.? Alert and oriented x3. PSYCH: Normal mood and affect. Objective Data Vital Signs Vital Signs: Vital Signs - 24 hr 09/14/23 20:18 09/14/23 23:23 09/15/23 00:48 Temperature 97.7 F 97.1 F L Pulse Rate 76 76 65 Respiratory Rate 15 15 16 Blood Pressure 177/96 H 158/92 H 138/92 H Pulse Oximetry 97 100 98 Oxygen Delivery Room Air 09/15/23 05:13 09/15/23 04:00 09/15/23 14:00 Temperature 97.7 F 98.1 F Pulse Rate 64 82 69 Respiratory Rate 16 18 Blood Pressure 132/79 117/66 Pulse Oximetry 100 97 Oxygen Delivery 09/15/23 08:00 Temperature Pulse Rate 69 Respiratory Rate 18 Blood Pressure Pulse Oximetry 97 Oxygen Delivery Room Air Intake/Output Intake/Output: Intake & Output 09/12/23 09/13/23 09/14/23 09/15/23 23:59 23:59 23:59 23:59 Intake Total 1630 Balance 1630 Meds/Results Medications: Active Medications Generic Name Dose Route Start Last Admin Trade Name Freq PRN Reason Stop Dose Admin Artificial Tears 1 drop 09/15/23 02:17 Artificial Tears Ophth Soln 15 Ml Bottle EACH EYE QID PRN Dry Eye(S), blurry vision Aspirin 81 mg 09/15/23 08:00 09/15/23 08:38 Aspirin 81 Mg Chewable Tablet PO 81 mg DAILY@0800 [facility] Administration Enoxaparin Sodium 40 mg 09/15/23 09:00 09/15/23 08:39 Enoxaparin 40 Mg/0.4 Ml Syringe SUB-Q 40 mg DAILY [facility] Adm
[2023-09-16 05:30] VITALS: BP 104/70; PULSE 71; RESP 16; TEMP 36.1; O2SAT 99
[2023-09-16] MEDS: hydroCHLOROthiazide 25 MG TABLET PO (09:20)
[2023-09-16] MEDS: PANTOPRAZOLE 40 MG TABLET PO (09:20)
[2023-09-16] MEDS: ASPIRIN 81 MG CHEWABLE TABLET PO (09:20)
[2023-09-16] MEDS: lisinopriL 2.5 MG TABLET PO (09:20)
[2023-09-16] MEDS: ENOXAPARIN 40 MG/0.4 ML SYRINGE SUB-Q (09:20)
--- NOTE | 2023-09-16 11:44 | WPDNEURCNPN ---
Assessment and Plan Assessment and plan (1) Essential hypertension: Code(s): I10 - Essential (primary) hypertension Status: Acute (2) Left sided numbness: Code(s): R20.0 - Anesthesia of skin Status: Acute (3) Facial droop: Code(s): R29.810 - Facial weakness Status: Acute Plan 1. Hypertension 2. Hypercholesterolemia 3. GERD 4. Left-sided facial palsy by history superimposed by sensory symptomatology on the left side of the body but with negative MRI of the brain negative CTA of the head and neck. We will need to follow up on the regular basis with the family physician with the initial diagnosis of left facial palsy with superimposed unclear neuro symptom raising the possibility of TIA can be followed by the family physician aspirin 81mg daily can be given and the patient has already received a course of steroid from the initial emergency room no further investigations at this stage are warranted. Consult date: 09/16/23 HPI: Rickey Shane is a 38 year old male Has been admitted to the hospital through the emergency room for the chief complaint of left-sided facial droop along with numbness on his left side of the body patient reported in the ER when he developed the facial droop he was initially evaluated at [address] [place] [address] and was started on antiviral and steroid for possible Appiah's palsy but then 2 days ago he developed numbness in the left upper extremity and left lower extremity which prompted him to come to the emergency room. Occasions included hydrochlorothiazide 25mg daily, lisinopril 2.5mg daily, omeprazole 20mg daily, patient is not allergic to any medication, does have history of being currently alcohol intake but former smoker and initial examination in the emergency room was documented to have left-sided facial paralysis with decreased sensation in the left upper and left lower extremity. His vital signs were normal except blood pressure 177/96, CBC was normal, BMP was normal except sodium 136 and BUN 25, in the past patient does have ongoing history of hypertension hypercholesterolemia and GERD. his initial CT scan of the head was negative for the bleed, head and neck CTA was negative for any intravascular aneurysm or stenosis an MRI of the brain negative for any evidence of demyelinating disease or small-vessel disease or tumor, cervical spine MRI is suggestive of only mild cervical spondylosis He does have a history of 3 drinks per week.. Review of Systems Review of Systems: All systems reviewed & are unremarkable except as noted in HPI and below PMFSH Past Medical History Medical History Essential hypertension GERD (gastroesophageal reflux disease) Surgical History Surgical History No pertinent past surgical history Family History Family History Mother Healthy adult Father Healthy adult Social History Social History Social History: The patient lives at home with his and 4 children. 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 He is Czech-speaking only. He drinks alcohol 1-2 beers once a week. He denies illicit substance use. He told me that he had never smoked but told nursing staff that he was a former smoker. Code status: Full code Surrogate decision maker: Tiffany () Smoking status: Former smoker Alcohol intake: current Drinks per week: 3 Substance use type: does not use Do You Feel Safe in your Home?: Yes Lack of Transportation: No Lack of Food: Never True Current Housing: I Have Housing Concerned About Future Housing: No Difficulty Paying Gas/Electric Bills: No Difficulty Paying for Meds: No Currently Unemployed: No Education: High School Diploma/GED Difficulty w/ Childcare or Family Care: No Gender identity (if verbalized by the p
[2023-09-16 14:00] VITALS: BP 128/78; PULSE 74; RESP 16; TEMP 36.3; O2SAT 98
--- NOTE | 2023-09-16 15:40 | PM.DS ---
DS: Admitting Diagnosis Discharge Date 09/16/2023 Admitting Diagnosis Left-sided paresthesia DS: Discharge Diagnosis Discharge Diagnosis (1) Facial droop: Code(s): R29.810 - Facial weakness Status: Acute (2) Left sided numbness: Code(s): R20.0 - Anesthesia of skin Status: Acute (3) Essential hypertension: Code(s): I10 - Essential (primary) hypertension Status: Acute DS: Summary Hospital Course Hospital Course: Patient recently had left-sided facial droop and his presentation consistent with Appiah's palsy.? Patient had? received antiviral and prednisone therapy at outside ER without improvement in symptoms.? This will likely improve over the next couple of months with supportive care.? However the patient has now developed more acute symptoms of paresthesias down the posterior left arm, paresthesias of the palmar surfaces of the left hand and paresthesias of the posterior thigh stopping just above the calf with no associated weakness or significant change in coordination on exam.? Differential does include CVA although seems less likely given distribution and intermittent nature of the symptoms, TIA and MS among other neurologic etiologies.? Patient admitted under observation status and monitored on telemetry.? EKG with normal sinus rhythm.? A CT head normal.? CTA head and neck with no evidence of atherosclerotic plaque with 0% stenosis of the right and left carotid bulbs related to normal distal artery lumen diameter unremarkable cerebral CT angiogram with no aneurysm or hemodynamically significant stenosis.? Brain MRI performed which was negative.? On aspirin 81 mg daily. He did report neck pain and cervical MRI was performed which showed cervical spondylosis. Neurology was consulted and no further workup was recommended. Will continue to follow-up with PCP and also have follow-up with Neurology Elevated blood pressure improved warm home medication Hyperlipidemia not on statin therapy lipid with triglyceride elevated 27 LDL 95 will add small dose of statin DVT prophylaxis Lovenox Time Spent with Patient Time attestation: Total time spent providing and/or coordinating discharge services: 35 minutes Exam Narrative: GENERAL: Well-appearing, well-nourished, and in no acute distress. HEAD: Normocephalic, atraumatic. EYES: PERRLA and EOMI. ENT: Nares clear, no rhinorrhea or epistaxis.? Mucous membranes moist. NECK: Supple. CHEST: Clear to auscultation.? No respiratory distress. HEART: Regular rate and rhythm.? No murmur heard.? Normal peripheral pulses. ABDOMEN: Soft, nontender, nondistended, normal active bowel sounds. EXTREMITIES: Normal range of motion.? No edema. SKIN: Warm, dry, no rash. NEURO:? Left-sided facial palsy decreased sensation left arm left leg.? Alert and oriented x3. PSYCH: Normal mood and affect. DS: Data Imaging Radiologist's impression: ITS Impressions Chest X-Ray 09/14/23 21:43 IMPRESSION: 1. No acute cardiopulmonary disease. Head CT 09/14/23 21:49 IMPRESSION: 1. Normal head CT. Head/Neck CTA 09/14/23 21:53 IMPRESSION: 1. No evident atherosclerotic plaque with 0% stenosis of the right and left carotid bulbs relative to normal distal artery lumen diameter (NASCET criteria). 2. Unremarkable cerebral CT angiogram with no aneurysm or hemodynamically significant stenosis. Brain MRI 09/15/23 11:33 IMPRESSION: 1. Normal brain. Cervical Spine MRI 09/15/23 16:17 IMPRESSION: 1. Mild cervical spondylosis. Discharge Plan Discharge Attending physician on discharge: Blaine Garcia Consulting providers: Robson Oliver Discharging Clinician: Blaine Garcia Anticipated Discharge Date/Time: 09/16/23 15:31 Patient Disposition: Home, Self-Care Activity: as tolerated Diet: regular Patient Instructions: Antibiotic Form Stand Alone Forms: General Discharge Information Follow-up/Referrals: Ana,DEMARIO Flores [
== END 2023-09-16 16:02 | disposition home or self-care (01) ==
LOC: ANHED 23:09 → ANH3MEDSUR 09-16 15:40
PROVIDERS: Admitting Provider Internal Medicine; Emergency Provider Emergency Medicine; PCP Registered Nurse; Visit Provider Internal Medicine
DX: R29.810 Facial weakness (principal); R20.0 Anesthesia of skin; I10 Essential (primary) hypertension; K21.9 Gastro-esophageal reflux disease without esophagitis; E78.00 Pure hypercholesterolemia, unspecified; Z87.891 Personal history of nicotine dependence
CPT/HCPCS: 36415; 70450; 70496; 70498; 70553; 71045; 72141; 80048; 80053; 80061; 81003; 83605; 84484; 85025; 85610; 85730; 93005; 94762; 96360; 96372; 99285; A9270; A9577; G0378; J1650; J7030; Q9967